=== PATIENT | female | born 1950 | race Caucasian/White ===

== ENCOUNTER → 2018-11-08 | Outpatient (CLI) | payer MEDICARE, OTHER | END | disposition home or self-care (01) | LOC: CFH 07:53 | PROVIDERS: ATTEND Specialist | DX: G35 Multiple sclerosis (principal); R90.82 White matter disease, unspecified; J34.89 Other specified disorders of nose and nasal sinuses | CPT/HCPCS: 70551 ==

== ENCOUNTER → 2019-03-12 | Outpatient (CLI) | payer MEDICARE | END | disposition home or self-care (01) | LOC: CFH 09:34 | PROVIDERS: ATTEND Student in an Organized Health Care Education/Training Program | DX: N31.9 Neuromuscular dysfunction of bladder, unspecified (principal); M51.36 Other intervertebral disc degeneration, lumbar region | CPT/HCPCS: 74176 ==

== ENCOUNTER 2021-06-11 07:44 | Observation (INO) | payer MEDICARE ==
[~2021-06-11] VITALS: Ht 167.6 cm; Wt 49.3 kg
[2021-06-11 08:23] LABS: MEAN CORPUSCULAR HEMOGLOBIN 33.6 pg (27.0-34.8); MEAN CORPUSCULAR HGB CONC 33.7 g/dL (32.4-35.8); MEAN PLATELET VOLUME 7.6 fL (7.4-10.4); PLATELET COUNT 151 x10^3/uL (130-400); RED BLOOD COUNT 4.51 x10^6/uL (3.82-5.3); RED CELL DISTRIBUTION WIDTH 13.3 % (9.6-15.2)
[2021-06-11] MEDS ORDERED: ONDANSETRON 2MG/ML, 2ML ONE (08:26)
[2021-06-11] MEDS ORDERED: FAMOTIDINE 20 MG/2 ML ONE (08:29)
[2021-06-11] MEDS ORDERED: SODIUM CHLORIDE 0.9% 1,000ML IVBOLUS ONE (08:30)
[2021-06-11] MEDS ORDERED: FAMOTIDINE 20 MG/2 ML IVPush ONE (08:30)
[2021-06-11] MEDS ORDERED: ONDANSETRON 2MG/ML, 2ML IVPush ONE (08:30)
[2021-06-11] MEDS ORDERED: SODIUM CHLORIDE FLUSH 10ML SYR IVF ONE (08:30)
[2021-06-11 08:34] LABS: ALANINE AMINOTRANSFERASE 165 U/L (12-78); ALBUMIN 3.7 g/dL (3.4-5.0); ANION GAP 2 mmol/L (5-15); CALCIUM 8.6 mg/dL (8.5-10.1); CHLORIDE 107 mmol/L (98-107); CREATININE 0.94 mg/dL (0.55-1.02)
[2021-06-11 08:39] LABS: ALKALINE PHOSPHATASE 108 U/L (45-117); TOTAL PROTEIN 6.9 g/dL (6.4-8.2); TROPONIN I < 0.015 ng/mL (0.000-0.045)
--- NOTE | 2021-06-11 08:40 | NUR ---
PT TO CT
[2021-06-11] MEDS ORDERED: OMNIPAQUE 350 MG/ML, 100ML BOTTLE ONE (08:45)
[2021-06-11 08:47] LABS: <RBC MORPHOLOGY> NORMAL; BAND#(MANUAL) 0.72 x10^3/uL; BANDS%(MANUAL) 16 % (0-7); LYMPH#(MANUAL) 0.45 x10^3/uL (1-3.4); LYMPHS% (MANUAL) 10 % (22-44); MONOS#(MANUAL) 0.05 x10^3/uL (0.3-2.7); MONOS% (MANUAL) 1 % (2-9); SEG#(MANUAL) 3.29 x10^3/uL (1.8-6.8); SEGS% (MANUAL) 73 % (42-75)
[2021-06-11 08:48] LABS: <PLATELET ESTIMATE> ADEQUATE; <PLT MORPHOLOGY> NORMAL PLT MORPH
--- NOTE | 2021-06-11 09:09 | NUR ---
report of pt from kwadwo barth, and assuming care of pt at this time.
[2021-06-11 10:00] LABS: MICROSCOPIC AUTO
[2021-06-11] MEDS ORDERED: SODIUM CHLORIDE FLUSH 10ML SYR IVF PRN (11:00)
--- NOTE | 2021-06-11 11:17 | NUR ---
saline enema administered per order. bsc and toilet placed next to pt at this time.
--- NOTE | 2021-06-11 12:00 | NUR ---
attempted to call report x 1 with no answer.
[2021-06-11] MEDS ORDERED: CHOL20008 PO (15:04)
[2021-06-11] MEDS ORDERED: SOLI5TAB7 PO (15:08)
[2021-06-11] MEDS ORDERED: CALC-183 PO (15:08)
[2021-06-11] MEDS ORDERED: MIRA50TA PO (15:09)
[2021-06-11] MEDS ORDERED: MODA100T2 PO (15:16)
[2021-06-11] MEDS ORDERED: ROSU5TAB12 PO (15:16)
[2021-06-11] MEDS ORDERED: POLYETHYLENE GLYCOL 17 GM PACKET PO PRN (16:00)
[2021-06-11] MEDS ORDERED: DOCUSATE 100 MG CAPSULE PO PRN (16:00)
[2021-06-11] MEDS ORDERED: BISACODYL 10 MG SUPP PR PRN (16:00)
[2021-06-11] MEDS ORDERED: ONDANSETRON 2MG/ML, 2ML IVPush PRN (16:00)
[2021-06-11] MEDS ORDERED: ONDANSETRON ODT 4 MG PO PRN (16:00)
[2021-06-11 16:45] LABS: INTERNATIONAL NORMALIZED RATIO 1.07 (0.93-1.1); PROTHROMBIN TIME 11.4 Seconds (9.6-11.5)
[2021-06-11] MEDS: LACTATED RINGERS 1,000 ML IV SCH ×2 (16:59→19:40)
[2021-06-11] MEDS: ENOXAPARIN 40 MG/0.4 ML SQ SCH (16:59)
[2021-06-11 18:11] VITALS: BP 91/53
[2021-06-11 19:25] VITALS: BP 91/56
[2021-06-11] MEDS ORDERED: MIRABEGRON HOMEMEDPO SCH (21:00)
[2021-06-12 01:07] VITALS: BP 95/59
[2021-06-12] MEDS: LACTATED RINGERS 1,000 ML IV SCH ×2 (04:49→16:28)
[2021-06-12] MEDS ORDERED: PIPERACILLIN/TAZO 3.375 GM in DEXTROSE 5% 50 ML IV SCH (07:00)
[2021-06-12 07:29] VITALS: BP 114/67
[2021-06-12 07:50] LABS: BASOPHILS % (AUTO) 0 % (0-1); EOSINOPHILS % (AUTO) 3 % (1-7); LYMPHOCYTES % (AUTO) 8 % (22-44); MEAN CORPUSCULAR HEMOGLOBIN 33.3 pg (27.0-34.8); MEAN CORPUSCULAR HGB CONC 33.5 g/dL (32.4-35.8); MEAN PLATELET VOLUME 8.4 fL (7.4-10.4); MONOCYTES % (AUTO) 4 % (2-9); NEUTROPHILS % (AUTO) 85 % (42-75); PLATELET COUNT 133 x10^3/uL (130-400); RED BLOOD COUNT 3.97 x10^6/uL (3.82-5.3); RED CELL DISTRIBUTION WIDTH 13.4 % (9.6-15.2)
[2021-06-12 08:02] LABS: ALBUMIN 3.2 g/dL (3.4-5.0); ANION GAP 3 mmol/L (5-15); CALCIUM 8.6 mg/dL (8.5-10.1); CHLORIDE 106 mmol/L (98-107)
[2021-06-12 08:06] LABS: ALANINE AMINOTRANSFERASE 134 U/L (12-78); ALKALINE PHOSPHATASE 82 U/L (45-117); BILIRUBIN,TOTAL 0.4 mg/dL (0.2-1.0); CREATININE 0.79 mg/dL (0.55-1.02); TOTAL PROTEIN 6.6 g/dL (6.4-8.2)
[2021-06-12] MEDS ORDERED: MODAFINIL 100 MG TABLET PO SCH (09:00)
[2021-06-12 13:32] VITALS: BP 112/67
[2021-06-12] MEDS ORDERED: ACID1TAB7 PO (13:50)
[2021-06-12] MEDS ORDERED: AMOX1TAB12 PO (13:50)
[2021-06-12] MEDS ORDERED: SENN-211 PO (13:50)
[2021-06-12] MEDS ORDERED: LACTOBACILLUS CHEW TABLET PO SCH (16:00)
[2021-06-12 16:10] VITALS: BP 117/64
[2021-06-12] MEDS: ENOXAPARIN 40 MG/0.4 ML SQ SCH (16:28)
[2021-06-12] MEDS ORDERED: AMOXICILLIN/CLAV 875-125MG TABLET PO SCH (21:00)
[2021-06-12] MEDS ORDERED: SENNA/DOCUSATE TABLET PO SCH (21:00)
== END 2021-06-12 17:00 | disposition home or self-care (01) ==
LOC: ED 08:27 → INTOOBSV 10:58 → EDIP 10:58 → 4NE 13:05
PROVIDERS: ADMIT Hospitalist; ATTEND Internal Medicine
DX: K59.09 Other constipation (principal); R53.83 Other fatigue; R94.5 Abnormal results of liver function studies; K70.11 Alcoholic hepatitis with ascites; G35 Multiple sclerosis; E78.5 Hyperlipidemia, unspecified; R82.90 Unspecified abnormal findings in urine; R74.01 Elevation of levels of liver transaminase levels; D72.829 Elevated white blood cell count, unspecified; D72.825 Bandemia; E86.0 Dehydration; N31.9 Neuromuscular dysfunction of bladder, unspecified; C90.00 Multiple myeloma not having achieved remission; Z72.89 Other problems related to lifestyle; Z68.1 Body mass index [BMI] 19.9 or less, adult; Z87.448 Personal history of other diseases of urinary system; Z79.899 Other long term (current) drug therapy
CPT/HCPCS: 36415; 74177; 80053; 80074; 81001; 83605; 83690; 83735; 84484; 85025; 85610; 87040; 89055; 93005; 96361; 96365; 96372; 96375; 99285; G0378; J1650; J2405; J2543; J7030; J7120; Q9967

== ENCOUNTER 2021-06-18 14:53 | Emergency (ER) | payer MEDICARE ==
[~2021-06-18] VITALS: Ht 167.6 cm; Wt 50.3 kg
[~2021-06-18 14:53] MED LIST: ACID1TAB7 PO; AMOX1TAB12 PO; CALC-183 PO; CHOL20008 PO; MIRA50TA PO; MODA100T2 PO; ROSU5TAB12 PO; SENN-211 PO; SOLI5TAB7 PO
--- NOTE | 2021-06-18 15:04 | NUR ---
FIRST CONTACT: C/O OF ITCHY HAND DUE TO MEDICATIONCALCIUM, VD, MIRABEGRON, SOLIFENACIN AND C/O ABD PAIN. PT TO ROOM WITH STEADY GAIT. POSTIONED TO COMFORT IN BED. ATTACHED TO MONITORS. VSS. MEZA. AT BEDSIDE.
--- NOTE | 2021-06-18 15:11 | NUR ---
YESSY GREWAL TO BEDSIDE FOR EVALUATION.
[2021-06-18 15:42] LABS: MICROSCOPIC INDICATED
[2021-06-18 16:02] LABS: MEAN CORPUSCULAR HEMOGLOBIN 32.8 pg (27.0-34.8); MEAN CORPUSCULAR HGB CONC 33.8 g/dL (32.4-35.8); MEAN PLATELET VOLUME 7.7 fL (7.4-10.4); PLATELET COUNT 173 x10^3/uL (130-400); RED BLOOD COUNT 4.44 x10^6/uL (3.82-5.3); RED CELL DISTRIBUTION WIDTH 13.2 % (9.6-15.2)
[2021-06-18 16:04] LABS: ALBUMIN 3.8 g/dL (3.4-5.0); ANION GAP 8 mmol/L (5-15); CALCIUM 8.8 mg/dL (8.5-10.1); CHLORIDE 104 mmol/L (98-107); CREATININE 0.82 mg/dL (0.55-1.02)
[2021-06-18 16:47] VITALS: BP 112/75
[2021-06-18 16:48] LABS: BAND#(MANUAL) 2.26 x10^3/uL; BANDS%(MANUAL) 17 % (0-7); EOS#(MANUAL) 0.13 x10^3/uL (0.0-0.4); EOS% (MANUAL) 1 % (1-7); LYMPH#(MANUAL) 0.67 x10^3/uL (1-3.4); LYMPHS% (MANUAL) 5 % (22-44); METAMYELOCYTES# (MANUAL) 0.13 x10^3/uL (0-0); METAMYELOCYTES% (MANUAL) 1 % (0-1); MONOS#(MANUAL) 0.27 x10^3/uL (0.3-2.7); MONOS% (MANUAL) 2 % (2-9); SEG#(MANUAL) 9.84 x10^3/uL (1.8-6.8); SEGS% (MANUAL) 74 % (42-75)
[2021-06-18 16:49] LABS: <PLATELET ESTIMATE> ADEQUATE; <PLT MORPHOLOGY> NORMAL PLT MORPH; <RBC MORPHOLOGY> NORMAL
--- NOTE | 2021-06-18 18:11 | NUR ---
Patient given discharge instructions and they have confirmed that they understand the instructions. Patient ambulatory with steady gait. NAD, all questions answered appropriately, denies additional needs at this time. No personal belongings left in room after discharge.
== END 2021-06-18 18:12 | disposition home or self-care (01) ==
LOC: ED 15:09
DX: L24.9 Irritant contact dermatitis, unspecified cause (principal); D72.825 Bandemia; E78.5 Hyperlipidemia, unspecified; Z86.19 Personal history of other infectious and parasitic diseases
CPT/HCPCS: 36415; 80048; 81001; 82040; 85025; 86592; 87040; 99283